=== PATIENT | female | born 1980 | race Caucasian/White ===

== ENCOUNTER 2021-12-28 10:59 | Outpatient (CLI) | payer OTHER, SELFPAY ==
--- NOTE | 2021-12-28 11:15 | CRLHL7_ITS ---
For Patients: As a result of the Century Cures Act, medical imaging exams and procedure reports are released immediately into your electronic medical record. You may view this report before your referring provider. If you have questions, please contact your health care provider. CLINICAL HISTORY: Irregular bleeding TECHNIQUE: Real time, romo scale images were acquired of the pelvis using a transabdominal and transvaginal approach. Color Doppler analysis was performed of the ovaries. FINDINGS: The uterus measures 9. 1 x 5.1 x 5.6cm. Endometrium was not measured. IUD in the endometrial cavity likely in a satisfactory position. The T portion of the IUD abuts the fundal fibroid. Fundal fibroid measuring 2.2 x 1.8 x 2.3 centimeters. Ovaries are unremarkable. Right ovary measures 2.7 x 2.5 x 2.4 centimeters left ovary measures 4.9 x 2.8 x 2.9 centimeters normal blood flow to both ovaries. IMPRESSION: IUD in the endometrial cavity likely necessitate position T portion of the IUD abuts the fundal fibroid. Fundal fibroid measuring 2.2 x 1.8 x 2.3 cm. Dictated by Belem Martinez MD @ 12/28/2021 12:22:05 PM (Electronically Signed)
== END 2021-12-28 11:00 | disposition home or self-care (01) ==
LOC: US 11:00
PROVIDERS: Visit Provider Registered Nurse
DX: N93.9 Abnormal uterine and vaginal bleeding, unspecified (principal); D25.9 Leiomyoma of uterus, unspecified
CPT/HCPCS: 76830

== ENCOUNTER 2022-02-25 17:25 | Outpatient (CLI) | payer OTHER, SELFPAY | END 2022-02-25 17:26 | disposition home or self-care (01) | LOC: FRMREF 02-28 12:13 | PROVIDERS: Visit Provider Family Medicine | DX: Z01.818 Encounter for other preprocedural examination (principal); I10 Essential (primary) hypertension; N92.1 Excessive and frequent menstruation with irregular cycle | CPT/HCPCS: 87086 ==

== ENCOUNTER 2022-03-01 09:58 | Outpatient (CLI) | payer OTHER, SELFPAY ==
--- NOTE | 2022-03-01 10:15 | CRLHL7_ITS ---
For Patients: As a result of the Century Cures Act, medical imaging exams and procedure reports are released immediately into your electronic medical record. You may view this report before your referring provider. If you have questions, please contact your health care provider. BILATERAL SCREENING MAMMOGRAM WITH COMPUTER-AIDED DETECTION TECHNIQUE: CC and MLO views were obtained. These mammographic images have been obtained using full-field digital technique. These mammographic images were interpreted with the benefit of computer-aided detection. COMPARISON FILM: 08/2016. FINDINGS: The breasts are heterogeneously dense, which may obscure small masses IMPRESSION: There is no radiographic evidence for malignancy. ASSESSMENT: BI-RADS Category 2: Benign RECOMMENDATION: Routine screening mammogram in 1 year. A lay language report of this examination will be provided to the patient. Patrick Villegas M.D. Diagnostic Radiologist [email or web address] Transcribed: 1:53 pm DW/Dictated by: Patrick Villegas MD @ 03/01/2022 12:29:00 PM (Electronically Signed)
== END 2022-03-01 09:59 | disposition home or self-care (01) ==
LOC: MAMMO 09:59
PROVIDERS: Visit Provider Registered Nurse
DX: Z12.31 Encounter for screening mammogram for malignant neoplasm of breast (principal); R92.2 Inconclusive mammogram
CPT/HCPCS: 77063; 77067

== ENCOUNTER 2022-03-05 09:09 | Day surgery (SDC) | payer OTHER, SELFPAY ==
[2022-03-05] VITALS (21 sets, daily range): BP systolic 109–124; BP diastolic 64–84; PULSE 64–89; RESP 14–20; TEMP 36.1–37.1; O2SAT 94–99; BMI 25.2
[2022-03-05] MEDS: LACTATED RINGERS 1000 ML 1,000 ML 100 ML IV ×4 (09:50→14:57)
[2022-03-05] MEDS: SODIUM CHLORIDE 0.9 % (FLUSH) 10 ML SYRINGE IVF (09:50)
[2022-03-05 09:52] LABS: Ur HCG Qualitative* Negative (Negative)
[2022-03-05 10:23] LABS: Hemoglobin* 13.6 gm/dL (12.0-16.0)
--- NOTE | 2022-03-05 11:04 | P.PCN_ITS ---
Procedure Note Time Seen by Provider: 11:05 Date Seen: 03/05/22 Date of procedure: 03/05/22 Will [facility] bill your pro fee for this procedure?: Yes Procedure: Preoperative diagnosis: 41-year-old 2 para 2 * uterine fibroids * menometrorrhagia Postoperative diagnosis: Same Procedure: Mirena IUD removal. Total laparoscopic hysterectomy, bilateral salpingectomy, diagnostic cystoscopy. Anesthesia: General endotracheal, local Surgeon: Radha Chacon MD Assist: Tammy Thompson MD Estimated blood loss: 50 mL. IV Fluid: 2800 mL Urine output: 150 mL, clear urine at the end of the procedure Drains: Alcocer to gravity Specimen: Uterus, right fallopian tube, left fallopian tube to pathology Findings: On exam under anesthesia: The uterus was midposition, approximately 11 week size, mobile without nodularity or masses palpable. Adnexa without mass or fullness palpable. On laparoscopy: enlarged uterus consistent with intramural fundal fibroid. Appendix, liver and gallbladder all appeared normal. Procedure: Tasia was taken to the operating room where general anesthetic was found to be adequate. She was placed in the dorsal lithotomy position and an exam under anesthesia was performed with findings stated above. She was then prepped and draped in a normal sterile manner. A Alcocer catheter was placed. A bivalve speculum was placed in the vaginal canal. The bottom of the T portion of the Mirena IUD was noted to be protruding from the external cervical os. This was grasped with a ring forceps and removed without difficulty. A long Allis clamp was placed on the anterior lip of the cervix, in the uterus sounded to 11 cm. A extra large VCare uterine manipulator was then placed. The Allis clamp and speculum were removed from the cervix. Attention was then turned to performing the laparoscopic portion of the procedure. All incisions were infiltrated with 0.50% Marcaine prior to incising the skin. A vertical, infraumbilical 1 cm incision was made. An 11 mm trocar was then placed under direct visualization. The abdomen was then insufflated with CO2 gas to a pressure of 15 mm of mercury. Two,, pelvic ports were then placed approximately 3-4 finger breaths medial to the ischial crests. The trocar in the RLQ = 5mm, LLQ = 11mm. These were placed under direct visualization. Attention was then turned to performing the hysterectomy. Both ureters were visualized in the normal position bilaterally. The left fallopian tube was grasped and removed with sequential pedicles using the dissecting, PowerSeal blunt tip dissecting forceps. The left side of the hysterectomy was performed using the PowerSeal dissecting forceps. The 1st pedicles were starting with the broad ligament that was cauterized and and bisected. In sequence show pedicles were formed to divide the utero-ovarian ligament. Then sequential pedicles were made through the broad ligament. The posterior leaf of the broad ligament was then divided and sequential pedicles carried down to the level of the VCare cup. The anterior leaf of the broad ligament was then divided down to the level of the anterior aspect of the VCare cup and a bladder flap created. The uterine vessels were then skeletonized. The uterine vessels were then cauterized and divided. Then excess tissue was cleared over the top of the VCare cup using the dissecting forceps. The right salpingectomy and right side of the hysterectomy were then performed in a similar manner. The Ligasure Valleylab pen with the spatula attachment was then used to perform the colpotomy incising around the VCare cup. The uterus was removed and the fundus placed in the vaginal canal to maintain insufflation. The vaginal cuff was then reapproximated using 2-0 V lock suture in a running manner. One additional figure of 8 suture was placed and tied intracorporeally using 0- Vicryl was placed to obtain hemostasis. All the pedicles and vaginal cuff were then closely visualized and hemostasis obtained with bipolar cautery using the PowerSeal dissecting forceps or the VouchARlab pen with the spatula. The the uterus was removed from the vaginal canal and sent to pathology. The Alcocer catheter was briefly removed. A diagnostic cystoscopy was performed using normal saline as the insufflation medium. The dome of the bladder was noted to be without injury and no evidence of any sutures from the vaginal cuff causing injury. Normal urine flow was noted through both ureteral orifices. Fluorescein IV was used to visualize the urine more easily. The Alcocer catheter was then replaced. Attention was then returned to the abdomen where hemostasis was verified. Karan was applied to the vaginal cuff. The CO2 pressure decreased to 8mmHG and hemostasis verified. The fascia in the LLQ incision was approximated with 0- Vicryl suture using the Bradford Thomasen fascial closure device. This was closed under direct visualization with the laparoscope. The fascia in the umbilical incision was reapproximated using 0 Vicryl on a UR 6 needle. All trocars were removed under direct visualization. CO2 gas was allowed to escape the infraumbilical port prior to its removal. All skin incisions were re- approximated using 4-0 Monocryl in a running subcuticular manner, Exofin skin adhesive gel and adhesive bandages placed. The patient tolerated this procedure well. Sponge, lap and instrument counts were correct x2 at the end of the procedure and the patient was taken to the recovery area in stable condition. The patient received 2gm IV ancef prior to the start of the procedure. Surgeon: Radha Chacon MD
[2022-03-05] MEDS: CEFAZOLIN 2 GM INJ IVP (11:18)
[2022-03-05] MEDS: BUPIVACAINE 0.5% 30 ML INJECTION (11:35)
--- NOTE | 2022-03-05 11:44 | P.NB_ITS ---
Nerve Block Nerve Block Date Seen: 03/05/22 Type of block requested by surgeon for post-operative analgesia: TAP Side: bilateral Time out performed: Yes Verification of patient name: Yes Verification of date of : Yes Site marking: site marked Name of person performing procedure: Jas Continuous monitoring Was continuous monitoring of O2 sat, B/P, classroom monitor, recorded every 15 minutes?: Yes Procedure Checklist: sterile prep, needles and gloves Ultrasound guided. Images saved: Yes Medications given in 5ml increments after negative aspiration: Marcaine %: 0.25 mL: 30 Needle gauge: 20 and Exparel mL: 10 Patient tolerated procedure well: Yes Additional comments: Needle noted adjacent to nerve Block Charges Block Charge (with Pro Fee): TAP Bilateral Use of Ultrasound Machine for Block: Yes- US Guidance/pain block
--- NOTE | 2022-03-05 13:51 | W.ANESCHARGE ---
Anesthesia Charges Start Date/Time Anesthesia Start Date: 03/05/22 Anesthesia Start Time: 11:08 Stop Date/Time Anesthesia Stop Date: 03/05/22 Anesthesia Stop Time: 14:00 Summary Emergency: No
--- NOTE | 2022-03-05 13:54 | W.PM.GYNPROC ---
Procedure Note Date Seen: 03/05/22 Procedure Details: PREOPERATIVE DIAGNOSIS: Menorrhagia. Uterine fibroids. POSTOPERATIVE DIAGNOSIS: Menorrhagia. Uterine fibroids. PROCEDURE: Total laparoscopic hysterectomy. Bilateral salpingectomies. Diagnostic cystoscopy. SURGEON: Gee Nur. ADULT BASIC STUDIES TEACHER: Donna ANESTHESIA: General endotracheal COMPLICATIONS: None ESTIMATED BLOOD LOSS: See operative report by Dr. Chacon. FINDINGS: Enlarged irregular fibroid uterus. Normal ovaries and fallopian tubes bilaterally. PROCEDURE NOTE: Please see the operative report by Dr. Chacon. for full details of the procedure. I was asked to assist. I was scrubbed in for the entire procedure until closure of the abdominal incisions. I provided assistance with laparoscopic port placement, visualization and retraction, and with the hysterectomy and bilateral salpingectomies from the right side, as well as with hemostasis and closure of the vaginal cuff.
--- NOTE | 2022-03-05 14:01 | W.ANESCHARGE ---
Anesthesia Charges Start Date/Time Anesthesia Start Date: 03/05/22 Anesthesia Start Time: 11:08 Stop Date/Time Anesthesia Stop Date: 03/05/22 Anesthesia Stop Time: 14:00 Summary Emergency: No
--- NOTE | 2022-03-05 14:37 | SUR.PHASEI ---
patient met discharge criteria per anesthesia
[2022-03-05] MEDS: HYDROmorphone 0.5 mg/0.5 ml inj IVP (14:57)
[2022-03-05] MEDS: KETOROLAC 30 MG/ML inj IVP (19:50)
[2022-03-05] MEDS: ACETAMINOPHEN 325 MG TABLET 650 MG PO (20:40)
[2022-03-06] MEDS: KETOROLAC 30 MG/ML inj IVP (01:55)
[2022-03-06 06:11] VITALS: BP 127/75; PULSE 59; RESP 16; TEMP 36.6; O2SAT 97
[2022-03-06] MEDS: IBUPROFEN 600 MG TABLET PO (06:16)
[2022-03-06 07:19] LABS: Hemoglobin* 11.1 gm/dL (12.0-16.0)
[2022-03-06 07:57] VITALS: BP 129/81; PULSE 54; RESP 18; TEMP 36.9; O2SAT 98
--- NOTE | 2022-03-06 08:54 | P.DS_ITS ---
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 She was taken to the operating room whe re she underwent total laparoscopic hysterectomy, bilateral salpingectomies and diagnostic cystoscopy. Indication for surgery: menometrorrhagia and uterine fibroids. Intraoperative findings were notable for an enlarged myomatous uterus. She had an uncomplicated surgery. Postoperative course has been uneventful. Vitals have been stable. She has remained afebrile. Today, on postoperative day 1, she reports the pain is well controlled. She has been able to ambulate Without difficulty. She is tolerating regular diet. She is passing flatus. Alcocer catheter has been removed, and she is voiding without difficulty. Time Spent with Patient Time attestation: Total time spent providing and/or coordinating discharge services: Time spent: Less than 30 minutes CALENDER MACHINE OPERATOR HELPER - Exam Physical Exam: Vital signs: Temp Pulse Resp BP Pulse Ox O2 Del Method 98.4 F 54 L 18 129/81 98 03/06/22 07:57 03/06/22 07:57 03/06/22 07:57 03/06/22 07:57 03/06/22 07:57 03/06/22 07:57 Constitutional: Constitutional: no acute distress and cooperative Routine HEENT Exam: Head: Present normal inspection Eye: Present normal appearance Comments: swelling on the right upper lip Routine Respiratory Exam: Comments: Normal respiratory effort Routine Cardiovascular Exam: Cardiovascular: Present RRR Routine Abdominal Exam: Abdominal: Present soft; Absent tenderness Comments: laparoscopic incision sites clean, dry, intact Routine Extremities Exam: Extremities: Present normal inspection Routine Neurological Exam: Neurological: Present oriented X3 CALENDER MACHINE OPERATOR HELPER - DS: Data Data Completed and Pending Labs on day of discharge: Labs from last 24 hours 03/06/22 03/05/22 03/05/22 06:41 10:07 10:07 Hgb 11.1 L 13.6 Urine HCG, Qual Blood Type O Negative Antibody Screen NEGATIVE 03/05/22 08:42 Hgb Urine HCG, Qual Negative Blood Type Antibody Screen Procedures Procedures: Procedures Operation Date: 03/05/22 10:20 Actual Procedure Side Surgeon p Total Lap Hysterectomy, Bilateral Salpingectomy, Diagnostic Cystoscopy Bilateral Radha Chacon MD Discharge Plan Discharge Disposition: Home, Self-Care Discharge Location: [facility] Discharging Surgeon: Tammy Thompson Follow-Up Appointment: With Radha Chacon in 2-3 weeks. Prescriptions: New docusate sodium 100 mg Capsule 100 mg PO BID PRN (Reason: Constipation) Qty: 100 0RF ibuprofen 600 mg Tablet 600 mg PO Q6H Qty: 30 0RF oxycodone 5 mg Tablet 5 mg PO Q4H PRN (Reason: Moderate Pain) 7 Days Qty: 21 0RF Continued losartan 50 mg tablet 50 mg PO QDAY Qty: 90 3RF Discharge Diet: Regular Patient Instructions: Surgical Site Infections (DC), Laparoscopic Hysterectomy (DC) Additional Instructions: Discharge instructions were reviewed with the patient including signs and symptoms of infection and medications to use for pain.? ? No lifting greater than 20 pounds for 3 weeks. Nothing per vagina for 6 weeks: No intercourse or tampons. Off work or school for 4 weeks. Do not soak the incisions in a tub or pool for 2 weeks. No high impact, strenuous or core exercises for 3 weeks. Walking and walking up and down stairs is safe. ? Follow up with your surgeon in 2-3 weeks. Forms: Work/School Release Follow-up: Radha Chacon MD [Staff Physician] - Karon Moss MD [Primary Care Provider] - Discharge Orders: Discharge Order (Routine); Ordered 03/06/22 Ordered By: Tammy Thompson
[2022-03-06] MEDS: OXYCODONE 5 MG TABLET PO (08:57)
[2022-03-06] MEDS: ACETAMINOPHEN 325 MG TABLET 650 MG PO (09:00)
[2022-03-06 11:36] VITALS: BP 121/67; PULSE 73; RESP 18; TEMP 36.9
== END 2022-03-06 11:36 | disposition home or self-care (01) ==
LOC: OR 14:11 → OB 14:51
PROVIDERS: PCP Family Medicine; Visit Provider Obstetrics & Gynecology
PROC: 0UT94ZZ Resection of Uterus, Percutaneous Endoscopic Approach (ICD-10-PCS; CPT 58571; principal; 2022-03-05 10:00)
DX: N92.1 Excessive and frequent menstruation with irregular cycle (principal); D25.1 Intramural leiomyoma of uterus; N83.8 Other noninflammatory disorders of ovary, fallopian tube and broad ligament; Z97.5 Presence of (intrauterine) contraceptive device
CPT/HCPCS: 58571; 00840; 36415; 64488; 76942; 81025; 85018; 86850; 86900; 86901; 88307; A9270; C9290; J0330; J0690; J1100; J1170; J1885; J2250; J2405; J2704; J2710; J3010; J3490; J7120

== ENCOUNTER 2023-04-07 07:47 | Outpatient (CLI) | payer BC, SELFPAY | END 2023-04-07 07:48 | disposition home or self-care (01) | PROVIDERS: PCP Family Medicine; Visit Provider Family Medicine | DX: I10 Essential (primary) hypertension (principal); D64.9 Anemia, unspecified; Z11.59 Encounter for screening for other viral diseases | CPT/HCPCS: 80053; 80061; 82043; 82570; 86803 ==

== ENCOUNTER 2023-11-26 14:31 | Outpatient (CLI) | payer BC, SELFPAY ==
--- NOTE | 2023-11-26 15:00 | CRLHL7_ITS ---
For Patients: As a result of the Century Cures Act, medical imaging exams and procedure reports are released immediately into your electronic medical record. You may view this report before your referring provider. If you have questions, please contact your health care provider. BILATERAL SCREENING MAMMOGRAM WITH COMPUTER-AIDED DETECTION AND TOMOSYNTHESIS TECHNIQUE: CC and MLO views were obtained. These mammographic images have been obtained using full-field digital technique. These mammographic images were interpreted with the benefit of computer-aided detection. Breast Tomosynthesis was used in this interpretation. COMPARISON FILM: 03/01/22, 09/19/16. FINDINGS: The breasts are heterogeneously dense, which may obscure small masses IMPRESSION: There is no radiographic evidence for malignancy. ASSESSMENT: BI-RADS Category 2: Benign RECOMMENDATION: Routine screening mammogram in 1 year. A lay language report of this examination will be provided to the patient. Patrick Villegas M.D. Diagnostic Radiologist [email or web address] bM/Dictated by: Patrick Villegas MD @ 11/27/2023 8:23:00 AM (Electronically Signed)
== END 2023-11-26 14:32 | disposition home or self-care (01) ==
LOC: MAMMO 14:32
PROVIDERS: PCP Family Medicine; Visit Provider Family Medicine
DX: Z12.31 Encounter for screening mammogram for malignant neoplasm of breast (principal); R92.2 Inconclusive mammogram
CPT/HCPCS: 77063; 77067

== ENCOUNTER 2024-07-19 13:05 | Outpatient (CLI) | payer BC, SELFPAY | END 2024-07-19 13:06 | disposition home or self-care (01) | PROVIDERS: PCP Family Medicine; Visit Provider Family Medicine | DX: I10 Essential (primary) hypertension (principal); D64.9 Anemia, unspecified; Z13.6 Encounter for screening for cardiovascular disorders; Z13.1 Encounter for screening for diabetes mellitus; Z13.9 Encounter for screening, unspecified | CPT/HCPCS: 80053; 80061; 82043; 82570 ==

== ENCOUNTER 2024-11-12 10:05 | Outpatient (CLI) | payer BC, SELFPAY ==
[2024-11-12 14:49] LABS: Chlamydia DNA Amplified* NOT DETECTED (No Detected); GC DNA Amplified* NOT DETECTED (No Detected)
== END 2024-11-12 10:06 | disposition home or self-care (01) ==
PROVIDERS: PCP Family Medicine; Visit Provider Nurse Practitioner Family
DX: Z11.3 Encounter for screening for infections with a predominantly sexual mode of transmission (principal); Z11.4 Encounter for screening for human immunodeficiency virus [HIV]; Z11.59 Encounter for screening for other viral diseases
CPT/HCPCS: 86592; 86703; 86706; 86803; 87340; 87491; 87591